=== PATIENT | female | born 1985 | race Caucasian/White ===

== ENCOUNTER 2024-11-30 17:03 | Emergency (ER) | payer BC, SELFPAY ==
[2024-11-30 17:13] VITALS: BP 163/98
[2024-11-30 17:35] LABS: Hematocrit 34.8 % (37.0-47.0); Hemoglobin 13.0 g/dL (12.0-16.0); Mean Corp Hgb Conc. 37.4 g/dL (33.0-37.0); Mean Corpuscular Volume 87.2 fL (81.0-99.0); Nucleated Red Blood Cells % 0 %; Platelet Count 198 10^3/uL (130-400); Red Cell Dist. Width 12.0 % (11.5-14.5)
[2024-11-30 17:46] LABS: HCG, Serum Qualitative Screen Negative
[2024-11-30 17:49] LABS: ALT (SGPT) 23 U/L (0-35); AST (SGOT) 18 U/L (14-36); Albumin 4.4 g/dl (3.5-5.0); Alkaline Phosphatase 36 U/L (38-126); Blood Urea Nitrogen 13 mg/dl (7-17); Calcium 9.5 mg/dl (8.4-10.2); Carbon Dioxide 26 mmol/L (22-30); Chloride 104 mmol/L (98-107); Glucose 99 mg/dl (70-99); Potassium 4.1 mmol/L (3.5-5.1); Sodium 136 mmol/L (135-145); Total Protein 6.5 g/dl (6.3-8.2); eGFR > 60.00
[2024-11-30 20:24] VITALS: BMI 26.1
[2024-11-30 20:26] VITALS: BP 138/94
[2024-11-30] MEDS: FLEXERIL 10 MG PO (20:59)
--- NOTE | 2024-11-30 22:18 | ED.GENMED ---
History of Present Illness
General
Chief Complaint: Numbness
Source: patient
Exam Limitations: none
Time Seen by Provider: 11/30/24 19:49
Nursing documentation reviewed up to this point in time: agreed with
History of Present Illness
History of Present Illness:
Patient to ED wt complaint of numbness and tingling to her hands. COmplains that her legs feel heavy. SHe receives botox injections by her neurologist for her migraines. She states on Saturday she got her injections and then received botox
injections to bilateral trapezius muscle for complaint of bilateral shoulder pain. Today reports numbness and tingling to hands, leg heaviness. Denies fever/chills, recent illness. Brought self to ED for eval,
Past History
Past History
ED Past Medical History: Psychiatric (Anxiety, depression) and Other (Arthritis, and irritable bowel)
ED Past Surgical History:
Social History
Tobacco: Non-smoker
Alcohol: None
Drug: None
Personal:
Living: with family
Review of Systems
Review of Systems
Allergies reviewed?: Yes
All Other Systems: ROS reviewed and negative except as documented in HPI and ROS
Constitutional: Reports no symptoms
EENT: Reports no symptoms
Respiratory: Reports no symptoms
Cardiac: Reports no symptoms
ABD/GI: Reports no symptoms
: Reports no symptoms
Musculoskeletal: Reports no symptoms
Skin: Reports no symptoms
Neurological: Reports numbness (numbness and tingling to hands, leg heaviness)
Psychiatric: Reports no symptoms
Phy Exam
General Physical Exam
General Presentation: well appearing and mild distress
General age: appears stated age
General Skin: warm and dry
General Habitus: normal
General Mental: alert
ENT Exam
ENT Exam: EOMI, TM's normal, neck supple and swallowing well
Cardiovascular Exam
Cardiovascular Exam: regular rate/rhythm
Neurological Exam
Neurological Exam: alert, oriented x3, CN II-XII intact, no motor deficits, no sensory deficits and speech normal
Reflexes
Reflexes: +3: Left patellar, +3: Right patellar, +3: Left achilles and +3: Right achilles
Musculoskeletal Exam
Musculoskeletal Exam: full ROM and neuro vasc intact
Skin Exam
Skin Exam: normal color, warm/dry and no rash
Psychiatric Exam
Psychiatric Exam: normal mood/affect
Course
Orders/Labs/Results
Orders:
Orders
11/30/24 17:18
Test Result ONCE
11/30/24 17:23
Complete Blood Count/With Diff Urgent
Comprehensive Metabolic Panel Urgent
HCG, Serum Qualitative Screen Urgent
11/30/24 20:39
Cyclobenzaprine HCl [Flexeril] 10 mg PO NOW STA
Abnormal Lab Results
11/30/24
17:23
WBC 4.7 L 10^3/uL
(4.8-10.8)
RBC 3.99 L 10^6/uL
(4.20-5.40)
Hct 34.8 L %
(37.0-47.0)
MCH 32.6 H pg
(27.0-31.0)
MCHC 37.4 H g/dL
(33.0-37.0)
Immature Gran % 0.8 H %
(0-0.5)
Alkaline Phosphatase 36 L U/L
(38-126)
11/30/24 17:23
11/30/24 17:23
Vital Signs
Initial and Last Documented VS:
Initial Vital Signs
Temp Pulse Resp BP Pulse Ox
98.4 F 89 18 163/98 98
11/30/24 17:13 11/30/24 17:13 11/30/24 17:13 11/30/24 17:13 11/30/24 17:13
Last Documented Vital Signs
Temp Pulse Resp BP Pulse Ox
98.0 F 81 18 138/94 97
11/30/24 20:26 11/30/24 20:26 11/30/24 20:26 11/30/24 20:26 11/30/24 22:22
*Pulse Oximetry
SaO2: 97
Oxygen Mode of Delivery: Room air
Patient hypoxic: no
*Critical Care Note
Total Time (30-74mins, 75-104mins- exclusive of procedures): Not Applicable
Update Note
Update Note:
Patient to ED with report of numnbenss and tingling to bilateral hands, leg heaviness after receiveing botox injection to bilateral trapezius on . ON exam she has full ROM, equal strenght bilaterally to upper and lower extremities. No deficits
noted. VSS, she remains afebrile. Labs reviewed, no concerning findings. Unlikely that her recent botox injection has caused her current symptoms. SHe does have a history of neck and back issues and radiculopathy is most likely causing her
complaints. SHe is taking hydrocodone for her pain, will add muscle relaxant. She is discharged home and will corwino jeannette with her PCP. Given instructions on s/s t return to ED and she is agreeable to plan.
ED Attending Note
-
Portions of this chart may have been created with voice recognition software.� Occasional wrong word or��sound alike� substitutions may have occurred due to the inherent limitations of voice recognition software.
Discharge Plan
Departure
Patient Disposition: Home (Routine Discharge)
Date of Disposition: 11/30/24
Time of Disposition: 20:40
Patient with high blood pressure during this ER visit?: No
Condition: Good
Covid-19: Not Applicable
Discharge Problem:
Radiculopathy
Instructions: Radiculopathy of the neck and back (including sciatica)
Prescriptions:
New
cyclobenzaprine 10 mg tablet
10 mg PO TID PRN (Reason: muscle spasms) Qty: 14 0RF
No Action
sertraline [Zoloft] 100 MG tablet
150 mg PO DAILY
trazodone 50 MG tablet
50 mg PO HS
hydrocodone-acetaminophen 5-325 mg tablet
1 tab PO Q4H PRN (Reason: moderate pain)
Patient Comments:
08/01/2022: last filled 07/17/22, 100 tabs for 17 days from [facility]
bupropion HCl 300 mg tablet extended release 24 hr
300 mg PO DAILY
Referrals:
Rafy Marsh MD [Family Provider]
Activity Restrictions/Additional Instructions:
Return to the emergency department immediately for any changes in/worsening of your symptoms.
Interventions
Interventions:
*Risk Screen - Suicide Last Done: 11/30/24 17:13
*General Assessment Last Done: 11/30/24 17:13
*Neglect/Abuse Screening Last Done: 11/30/24 17:13
*ED- Fall Risk Assessment Last Done: 11/30/24 20:27
*ED COVID-19 Vaccine History Last Done: 11/30/24 20:27
*Nursing Disposition Last Done: 11/30/24 21:01
ED- Neurological Assessment Last Done: 11/30/24 20:27
Discharge Date and Time
Discharge Date/Time: 11/30/24 21:05
Print Language: ROMANSH
== END 2024-11-30 21:05 | disposition home or self-care (01) ==
LOC: EMR 17:03
PROVIDERS: Emergency Medicine; EMERGENCY PHYSICIAN Student in an Organized Health Care Education/Training Program; FAMILY PHYSICIAN Family Medicine
DX: M54.10 Radiculopathy, site unspecified (principal); R53.1 Weakness; M25.512 Pain in left shoulder; M25.511 Pain in right shoulder; F32.A Depression, unspecified; F41.9 Anxiety disorder, unspecified; K58.9 Irritable bowel syndrome, unspecified; M19.90 Unspecified osteoarthritis, unspecified site; G43.909 Migraine, unspecified, not intractable, without status migrainosus; Z88.8 Allergy status to other drugs, medicaments and biological substances
CPT/HCPCS: 99283; 80053; 84703; 85025